=== PATIENT | female | born 1955 | race Caucasian/White ===

== ENCOUNTER 2017-02-15 16:11 | Emergency (ER) | payer OTHER ==
[~2017-02-15] VITALS: Ht 175.3 cm; Wt 58.5 kg
[2017-02-15 16:57] LABS: HEMATOCRIT 40.5 % (36.0-46.0); MCH 27.3 PG (29.0-34.0); MCHC 32.6 G/DL (30.0-36.0); MCV 83.7 FL (83-99); MEAN PLAT.VOLUME 10.2 uM^3 (9.5-12.4); PLATELET COUNT 225 K/uL (156-360); RBC DIS.WIDTH-CV 13.5 % (11.8-14.6); RBC DIS.WIDTH-SD 41.2 % (39-53); RED BLOOD COUNT 4.84 M/uL (3.80-5.20); WHITE BLOOD COUNT 9.3 K/uL (4.1-10.2)
[2017-02-15 17:07] LABS: CHLORIDE 109 mEq/L (99-109); POTASSIUM 4.4 mEq/L (3.7-5.4); SODIUM 141 mEq/L (136-147)
[2017-02-15 17:09] LABS: GLUCOSE 104 mg/dL (70-99)
[2017-02-15 17:10] LABS: ANION GAP 7 MEQ/L (2-14)
[2017-02-15 17:11] LABS: TOTAL BILIRUBIN 0.9 mg/dL (0.0-1.0)
[2017-02-15 17:13] LABS: ALKALINE PHOSPHATASE 74 IU/L (3-129)
[2017-02-15 17:14] LABS: UREA NITROGEN (BUN) 14 mg/dL (9-23)
[2017-02-15 17:15] LABS: GFR ESTIMATE (CALCULATED) > 59 mL/min/
[2017-02-15 17:16] LABS: LIPASE 32 U/L (1.0-51.0)
[2017-02-15 18:19] LABS: ADD MIUA? YES; BILIRUBIN NEGATIVE; BLOOD MODERATE; COLOR STRAW ((YELLOW)); GLUCOSE (STRIP) NEGATIVE; KETONES 20; LEUKOCYTES TRACE; NITRITE NEGATIVE; PROTEIN (STRIP) NEGATIVE; SPECIFIC GRAVITY 1.011 (1.000-1.030); UROBILINOGEN 0.2 MG/DL (0.2-1.0)
[2017-02-15 18:36] LABS: BACTERIA NONE SEEN /HPF; EPITHELIAL CELLS NONE SEEN /HPF; MUCUS TRACE /LPF; RED BLOOD CELLS 0-5 /HPF (0-5); UCUL ADDED? NO; WHITE BLOOD CELLS 0-5 /HPF (0-5)
[2017-02-15] MEDS ORDERED: CIPRO500 MG PO (22:20)
[2017-02-15 22:38] VITALS: BP 124/75
== END 2017-02-15 22:41 | disposition home or self-care (01) ==
LOC: EME 16:11
DX: K59.00 Constipation, unspecified (principal); K76.0 Fatty (change of) liver, not elsewhere classified; Z90.710 Acquired absence of both cervix and uterus; Z87.891 Personal history of nicotine dependence
CPT/HCPCS: 74177; 80053; 81003; 83690; 85027; 99281; 99285; J2405; J3010; J7040